=== PATIENT | female | born 1980 | race American Indian/Alaskan Native ===

== ENCOUNTER 2017-03-17 08:24 | Day surgery (SDC) | payer MEDICAID ==
[2017-03-05 10:01] VITALS: BMI 24.0
[2017-03-17] MEDS ORDERED: Clindamycin 2% Vaginal Cream(40 gm) ONE (09:08)
[2017-03-17] MEDS ORDERED: ceFAZolin IV 2 gm in Dextrose 1 GM/50 ML BAG IVPB ONE (09:08)
[2017-03-17] MEDS ORDERED: Lidocaine 1% Inj (20ml) ONE (09:09)
[2017-03-17] MEDS ORDERED: Bacitracin 50,000 UNIT in Sodium Chloride 0.9% Irrig 1,000 ML IR SCH (09:30)
[2017-03-17] MEDS ORDERED: Gentamicin 160 MG in Sodium Chloride 0.9% 100 ML IVPB ONE (09:30)
[2017-03-17] MEDS ORDERED: Lactated Ringer's 1,000 ML IV ONE (09:35)
[2017-03-17] MEDS ORDERED: Propofol 10 mg/ml Inj (20 ML) ONE ×2 (09:41→09:51)
[2017-03-17] MEDS ORDERED: Midazolam 2 MG/2 ML VIAL ONE ×2 (09:41→11:11)
[2017-03-17] MEDS ORDERED: Bupivacaine 0.5%/Epi 1:200,000 (10 ML SOL) ONE (09:44)
[2017-03-17] MEDS ORDERED: HYDROmorphone 0.5 mg/0.5 ml ISec IVP PRN (10:23)
--- NOTE | 2017-03-17 11:38 | PCM.SURG1 ---
Surgeon's Initial Post Op Note - Surgeon's Notes Surgeon: Mike Production Utility Worker: SINCERE Type of Anesthesia: General LMA Anesthesia Administered By: staff Pre-Operative Diagnosis: Stress incontence Operative Findings: BN Hyoermobility Post-Operative Diagnosis: stress incontence Operation Performed: TVT Specimen/Specimens Removed: na Estimated Blood Loss: EBL {In ML}: 0 Blood Products Given: N/A Drains Used: No Drains Post-Op Condition: Good Date of Surgery/Procedure: 03/17/17 Time of Surgery/Procedure: 11:37
[2017-03-17 12:59] VITALS: RESP 16; O2SAT 99
[2017-03-17] MEDS ORDERED: Oxycodone/Acetaminophen 5/325 mg Tab PO ONE (14:14)
[2017-03-17] MEDS ORDERED: Oxycodone/Acetaminophen 5/325 mg Tab ONE (14:20)
[2017-03-17] MEDS ORDERED: Oxycodone/Acetaminophen 5/325 mg Tab PO PRN (14:30)
[2017-03-17 15:48] VITALS: BP 107/72; PULSE 88; TEMP 97.9
--- NOTE | 2017-03-17 21:21 | OP ---
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 PROCEDURE: Midurethral suspension with tension-free vaginal tape. FINDINGS: Descent of the bladder neck on Valsalva with significant leakage of urine. DESCRIPTION OF PROCEDURE: Prior to the procedure, a detailed informed consent was obtained from the patient. She was apprised of the special complications of using mesh versus fascial tissue. She was also advised of the routine complications of TVT surgery. She is aware that the surgery is not all successful in controlling stress incontinence, that in the future systemic erosions are possible and that she may experience suprapubic or vaginal pain, dyspareunia as well as the other complications. She agreed to accept these complications. She then did not want the fascial sling because of the cosmetic implications and signed the consents and willing to accept these risks. She was brought into the room and a time-out was taken according to the rules and regulations of [facility]. The patient was placed in the lithotomy position. The weighted speculum was placed in the vagina and a Franklin catheter was placed and the bladder was drained. With the Franklin catheter on tension, the bladder neck was palpated and a 1 inch area was marked in the mid urethra and then an incision was made over this area after infiltrating with 0.5 percent Marcaine and Xylocaine. This was carried down to the subcutaneous tissues and dissection was carried laterally with care to avoid injury to the bladder neck or urethra, none occurred. Once adequate dissection of the fascial planes was carried out, 2 incisions were made in the suprapubic area over the superior aspect of the pubic bone. A trocar was inserted in this incision. The rectus muscle sheaths were perforated and the trochar was passed on the posterior aspect of the pubic bone until it met the surgeon's finger in the vaginal incision. The trocar was then pulled out through the vaginal incision and left in place. The procedure was repeated on the opposite side. The patient was then cystoscoped, #21 Storz panendoscope with both 30 and 70 degree lens. The bladder was inspected thoroughly. The trocars could not be visualized within the bladder, indicated no perforation occurred. The patient tolerated this procedure very well. The tape was then fixed on the end of the trocars and the trocars were pulled upwards while a Ashley clamp was kept between the urethra and the tape. The plastic coating on the TVT was removed and the TVT was snugged to the proper fit without being too tight. This resulted in good support of the mid urethra. This was done while the Franklin catheter was in place. The patient tolerated this very well. The vaginal incision was closed with 3-0 chromic suture in this continuous fashion and a vaginal dressing was placed in the vagina with Bacitracin cream. The skin incisions were closed with skin vincent after trimming the TVT. The patient tolerated this very well and was sent to the recovery room in good condition with detailed instructions. Fran Mckeon MD
== END 2017-03-17 15:39 | disposition home or self-care (01) ==
LOC: C.SDS 08:24
PROVIDERS: ATTEND Urology
DX: N39.3 Stress incontinence (female) (male) (principal)
CPT/HCPCS: 57288; A4358; C1771; J0690; J1170; J1580; J2250; J2704; J3010; J7120

== ENCOUNTER 2018-03-06 22:42 | Emergency (ER) | payer MEDICAID ==
[2018-03-06 22:44] VITALS: BMI 24.0
[2018-03-06 23:08] VITALS: TEMP 98.8
[2018-03-06] MEDS ORDERED: Sodium Chloride 0.9% 1,000 ML IV SCH (23:30)
[2018-03-06 23:49] LABS: BASO # 0.1 K/uL (0.0-0.2); BASO % 1.2 % (0.0-2.0); EOS # 0.1 K/uL (0.0-0.7); EOS % 0.7 % (0.0-4.0); HEMOGLOBIN 14.8 g/dL (11.0-16.0); LYMPH # 2.8 K/uL (1.0-4.3); LYMPH % 23.8 % (20.0-40.0); MEAN CELL VOLUME 88.2 fL (81.0-99.0); MEAN CORPUSCULAR HEMOGLOBIN 29.7 pg (27.0-31.0); MEAN CORPUSCULAR HGB CONC 33.6 g/dL (33.0-37.0); MEAN PLATELET VOLUME 9.1 fL (7.2-11.7); MONO # 0.7 K/uL (0.0-0.8); NEUT # 8.1 K/uL (1.8-7.0); NEUT % 68.3 % (50.0-75.0); NRBC % 0.1 % (0.0-2.0); RBC 4.99 Mil/uL (3.80-5.20); RED CELL DISTRIBUTION WIDTH 12.8 % (11.5-14.5); WHITE BLOOD COUNT 11.9 K/uL (4.8-10.8)
[2018-03-06 23:52] LABS: SQUAMOUS EPITHIAL 6 /hpf (0-5); URINE BACTERIA OCC (<OCC); URINE BILIRUBIN NEGATIVE (NEGATIVE); URINE BLOOD NEGATIVE (NEGATIVE); URINE CLARITY Clear (Clear); URINE COLOR Straw (YELLOW); URINE GLUCOSE (UA) 3+ mg/dL (Normal); URINE LEUKOCYTE ESTERASE 1+ Leu/uL (Negative); URINE PROTEIN NEGATIVE (NEGATIVE); URINE UROBILINOGEN NORMAL mg/dL (0.2-1.0)
[2018-03-07 00:01] LABS: ALB/GLOB RATIO 1.2 (1.0-2.1); ALBUMIN 4.6 g/dL (3.5-5.0); ALT/SGPT 31 U/L (9-52); AST/SGOT 18 U/L (14-36); BLOOD UREA NITROGEN 13 mg/dL (7-17); CALCIUM 10.5 mg/dl (8.6-10.4); GFR NON-AFRICAN AMERICAN > 60; LIPASE 125 U/L (23-300)
--- NOTE | 2018-03-07 00:02 | C.PDOC ---
History Of Present Illness 37 yr old female w/ hx of DM2, [place] [facility] over the past week p/w abdominal pain. Pt notes abdominal pain, recurrent for which she was seen [place] [facility] and was diagnosed with diabetes. She notes her abdominal pain is not RLQ, or RUQ, it is only epigastric and overall has improved since last week. She also notes mild dizziness, non-constant without any FND. She denies any falls or trauma. No CP or sob. She notes that the main reason she came in however was that her glucose was elevated at 250 earlier in the day and she was concerned because it was high. She notes that her metformin dose was increased to [address] Restrepo on thursday but expected her glucose to be <200. No dark or bloody stool, no headache, neck stiffness or any other complaints. Time Seen by Provider: 03/06/18 22:51 Chief Complaint (Nursing): Abdominal Pain History Per: Patient Onset/Duration Of Symptoms: Days Current Symptoms Are (Timing): Better Location Of Pain/Discomfort: Epigastric Past Medical History Vital Signs: Last Vital Signs Temp 98.8 F 03/06/18 23:00 Pulse 93 H 03/06/18 23:00 Resp 20 03/06/18 23:00 BP 126/88 03/06/18 23:00 Pulse Ox - Medical History PMH: Diabetes (gestational), Migraine Denies: Chronic Kidney Disease Surgical History: Endoscopy Family History: States: Unknown Family Hx - Social History Hx Tobacco Use: No Hx Alcohol Use: No Hx Substance Use: No - Immunization History Hx Tetanus Toxoid Vaccination: No Hx Influenza Vaccination: No Hx Pneumococcal Vaccination: No Review Of Systems Constitutional: Negative for: Fever Eyes: Negative for: Pain ENT: Negative for: Ear Pain Cardiovascular: Negative for: Chest Pain Respiratory: Negative for: Cough, Shortness of Breath Gastrointestinal: Positive for: Abdominal Pain. Negative for: Nausea, Vomiting , Diarrhea, Constipation, Melena, Hematochezia, Hematemesis Genitourinary: Positive for: Frequency. Negative for: Dysuria Musculoskeletal: Negative for: Neck Pain, Shoulder Pain Skin: Negative for: Rash Neurological: Positive for: Dizziness. Negative for: Weakness, Numbness Physical Exam - Physical Exam Appears: Well, Non-toxic, No Acute Distress Skin: Normal Color, Warm, Dry Head: Atraumatic, Normacephalic Eye(s): bilateral: Normal Inspection, PERRL, EOMI Nose: Normal Oral Mucosa: Moist Throat: Normal Neck: Normal Cardiovascular: Rhythm Regular Respiratory: Normal Breath Sounds Gastrointestinal/Abdominal: Normal Exam Back: Normal Inspection, No CVA Tenderness, No Vertebral Tenderness, No Decreased ROM, No Muscle Spasm, No Paraspinal Tenderness Extremity: Normal ROM Neurological/Psych: Oriented x3, Normal Speech, Normal Cognition, Normal Cranial Nerves, No Cerebellar Signs, Normal Motor, Normal Sensation Gait: Steady Other Neurological Findings: No Facial Palsy Extremity: Right: No Drift, Left: No Drift, Upper: No Drift, Lower: No Drift ED Course And Treatment - Laboratory Results Result Diagrams: 03/06/18 23:46 03/06/18 23:46 Medical Decision Making Medical Decision Makin yr old female w/ recent hx of DM2 dx p/w abdominal pain, largely improved, mild dizziness described as lightheadedness and elevated glucose. On exam well appearing without FND or kerning/brudzinskis/meningeal signs. Given abd pain improving, hx of recent dx of gastritis will give pepcid here. NO RLQ pain on exam. NO rebound tenderness. Negative Psoas and obturator sign. No rebound tenderness. NO RUQ pain. Pt notes pain feels exactly like previous gastritis pain. Given glucose will check for DKA. No vaginal d/c or rashes. No fever. plan for labs + IVF 0010 labs resulted: No DKA: Normal bicarb, no gap Glucose ~270 UA contaminated but given urinary freq will rx w/ nitrofurantoin pending reassessment 0038 pain resolved abdomen now non-ttp and remains w/ out signs of rebound or guarding. ambulating well, stable neuro exam pt notes improvement after fluids given instructions to f/u w/ PMD regarding glucose control as well as UTI rx clear for d/c home Disposition - Disposition Disposition Time: 00:40 Condition: GOOD Forms: [facility] ([employer]) - Clinical Impression Clinical Impression: UTI (urinary tract infection)
[2018-03-07 01:12] VITALS: BP 123/76; PULSE 90; RESP 18; O2SAT 99
== END 2018-03-07 01:11 | disposition home or self-care (01) ==
LOC: C.ER 22:42
DX: N39.0 Urinary tract infection, site not specified (principal); E11.9 Type 2 diabetes mellitus without complications; Z79.84 Long term (current) use of oral hypoglycemic drugs
CPT/HCPCS: 80053; 81001; 82948; 83690; 85025; 87086; 87181; 96361; 96374; 99285; J7030